=== PATIENT | male | born 1960 | race Caucasian/White ===

== ENCOUNTER 2020-07-23 13:26 | Inpatient (IN) | payer OTHER, SELFPAY ==
[2020-07-23] VITALS (42 sets, daily range): BP systolic 91–140; BP diastolic 64–108; PULSE 78–127; RESP 10–26; TEMP 36.4–36.6; O2SAT 94–100; BMI 35.4
--- NOTE | ~2020-07-23 | XR_ITS ---
EXAMINATION: XR chest 1V portable DATE: 07/25/2020 15:46 INDICATION: Pneumonia. TECHNIQUE: A single frontal view of the chest was obtained. COMPARISON: Chest single view 07/23/2020 FINDINGS: There are airspace opacities in right lower lung zone and all left lung zones with a periph eral predominance. A calcified right lung nodule and calcified right hilar lymph nodes are consistent with old granulomatous disease. There is a small left pleural effusion. No pneumothorax. The heart s ize is normal. IMPRESSION: 1. Worsened airspace opacities in right lower lung zone and all left lung zones, consistent with pneu monia. 2. Small left pleural effusion. Reviewed, dictated and finalized at location B. METAL MIXER OPERATOR HELPER IMPRESSION: 1. Worsened airspace opacities in right lower lung zone and all left lung zones , consistent with pneumonia. 2. Small left pleural effusion.
--- NOTE | ~2020-07-23 | XR_ITS ---
EXAMINATION: XR chest 1V portable EXAM DATE: 07/23/2020 14:06 INDICATION: Cough, dizziness. TECHNIQUE: Portable AP frontal chest x-ray was obtained. There is no prior study for comparison. FINDINGS: Small amount of ill-defined bilateral lower lobe airspace disease, possible acute infectiou s process. No confluent consolidation, pneumothorax or pleural effusion suspected. The cardiomediasti nal silhouette is prominent but magnified on this AP technique. There are mild bony degenerative charles ges. IMPRESSION: Small amount of ill-defined bibasilar airspace disease, clinical correlation. Reviewed, dictated and finalized at location A. R AND CHASSIS INSPECTOR IMPRESSION: Small amount of ill-defined bibasilar airspace disease, clinical co rrelation.
--- NOTE | 2020-07-23 13:31 | ECG_ITS ---
Measurements Intervals [place] Rate: 100 P: AL: 0 QRS: 22 QRSD: 97 T: 6 QT: 354 QTc: 457 Interpretive Statements ATRIAL FIBRILLATION WITH RAPID VENTRICULAR RESPONSE ABNORMAL ECG Electronically Signed On 07-23-2020 14:57:05 THREADING MACHINE TENDER by Patrick Forde D.O.
--- NOTE | 2020-07-23 13:45 | PC.NURSE ---
resting on stretcher. here with suspected Covid. see triage notes. no distress. new onset Afib on monitor here and EKG done at bedside. assessments documented.
[2020-07-23 13:56] LABS: Basophils Percent Auto 0.4 % (0.2-1.2); Hemoglobin 17.6 g/dL (14.0-18.0); Immature Granulocyte Percent A 1.2 % (0-0.5); Lymphocytes Absolute Auto 1.39 K/mm3 (0.9-3.2); Lymphocytes Percent Auto 16.5 % (18.3-44.2); Mean Corpuscular HGB Conc 34.5 g/dl (32-36); Mean Corpuscular Hemoglobin 32.5 pg (26-34); Mean Corpuscular Volume 94.1 fl (80-100); Mean Platelet Volume 10.8 fl (7.4-10.4); Monocytes Absolute Auto 0.8 K/mm3 (0.1-0.6); Monocytes Percent Auto 9.7 % (2.6-8.5); Neutrophils Absolute Auto 6.1 K/mm3 (1.3-6.7); Neutrophils Percent Auto 72.2 % (45.5-73.1); Platelet Count Result 171 k/mm3 (150-375); Red Blood Count 5.42 M/mm3 (4.6-6.20); Red Cell Distribution Width 12.6 % (11.5-14.5); White Blood Count 8.4 K/mm3 (4.5-10.0)
[2020-07-23 14:06] LABS: INR 1.2; Partial Thromboplastin Time 25.5 SECONDS (22.3-36.8); Prothrombin Time 15.3 Seconds (11.1-14.7)
[2020-07-23 14:11] LABS: Atypical Lymphocytes Present; Lactic Acid Reflex 2.9 mmol/L (0.7-2.1); Platelet Estimate Adequate (Adequate)
[2020-07-23 14:13] LABS: Alanine Aminotransferase 52 U/L (4-50); Albumin Level 3.7 g/dL (3.5-5.1); Alkaline Phosphatase 72 U/L (38-126); Anion Gap 14 mmol/L (8-16); Aspartate Amino Transferase 45 U/L (17-59); Bilirubin,Total 1.1 mg/dL (0.2-1.3); Blood Urea Nitrogen 33 mg/dL (9-20); CRP 6.2 mg/dL (<1.0); Calcium 8.8 mg/dL (8.4-10.2); Carbon Dioxide 19 mmol/L (22-30); Chloride 101 mmol/L (98-107); Estimated CRCL calculation 57 ml/min; Estimated Glomerular Filt Rate 41; Glucose 206 mg/dL (75-110); Sodium 134 mmol/L (137-145)
--- NOTE | 2020-07-23 14:40 | PC.NURSE ---
provider in room now.
--- NOTE | 2020-07-23 15:05 | PC.NURSE ---
resting on stretcher. on outsole cementer. has call light in reach. denies needs. updated on current treatment plan and expected wait time.
[2020-07-23 15:36] LABS: Troponin I < 0.012 ng/mL (0.000-0.034)
[2020-07-23 16:54] LABS: Reflex Lactic Acid Yes or No Add Lactic
--- NOTE | 2020-07-23 16:55 | ED.GENADULT ---
HPI - General Adult General Chief complaint: Dizziness Stated complaint: dizzy,lightheaded Time Seen by Provider: 07/23/20 14:35 History of Present Illness HPI narrative: Patient is a 60-year-old gentleman who presents emergency room with chief complaint of generalized weakness. Patient reports that he was exposed to COVID-19 on election night and has had generalized body aches and has not felt well since then. Patient states that he has felt lightheaded and felt as though he was going to pass out today he got up and was trying to ambulate but had to lay down on the ground because he had no energy. The patient denies chest pain reports that the last time he was seen by a physician was in 2005 Related Data Home Medications Medication Instructions Recorded Confirmed No Home Medications 07/23/20 07/23/20 Allergies Allergy/AdvReac Type Severity Reaction Status Date / Time alprazolam Allergy Unknown PSYCHOTIC Verified 07/14/10 13:07 RXN,AMNESIC 2-3DAYS, Review of Systems Review of Systems: Narrative: CONSTITUTIONAL: Denies fever, chills, or sweats. EYES: Denies visual changes, redness, or discharge. ENT: Denies rhinorrhea, congestion, sore throat, or otalgia. CARDIOVASCULAR: Denies chest pain, palpitations, or edema. RESPIRATORY: Denies cough or dyspnea. GASTROINTESTINAL: Denies abdominal pain, nausea, vomiting, or diarrhea. GENITOURINARY: Denies dysuria or hematuria. SKIN: Denies rash or itching. MUSCULOSKELETAL: Denies back pain, joint pain, or myalgia. NEUROLOGIC: Denies headache, numbness, or weakness. PSYCHIATRIC: Denies anxiety or depression. All systems reviewed & are unremarkable except as noted in HPI and below PMFSH Comments Prior history of head injury with long-term rehab gallop Denies smoking Exam Narrative: Exam Narrative: GENERAL: Well-appearing, well-nourished, and in no acute distress. HEAD: Normocephalic, atraumatic. EYES: PERRLA and EOMI. ENT: Nares clear, no rhinorrhea or epistaxis. Mucous membranes moist. NECK: Supple. CHEST: Clear to auscultation. No respiratory distress. HEART: Regular rate and rhythm. No murmur heard. Normal peripheral pulses. ABDOMEN: Soft, nontender, nondistended, normal active bowel sounds. EXTREMITIES: Normal range of motion. No edema. SKIN: Warm, dry, no rash. NEURO: No focal deficits. Alert and oriented x3. PSYCH: Normal mood and affect. Course Course Emergency Course: Patient's EKG shows a rate controlled atrial fibrillation. The patient has no prior history of atrial fibrillation. Patient's labs are consistent with potential COVID-19 chest x-ray shows no evidence of large infiltrate but does show evidence of possible bibasilar infiltrates. Given the onset of atrial fibrillation and also being patient CRP and also mild elevated creatinine showing acute kidney injury the case was discussed with the hospitalist and the patient will be admitted to the hospitalist service Vital Signs Vital signs: Vital Signs Pulse Rate 109 H 07/23/20 13:29 Respiratory Rate 18 07/23/20 13:29 Pulse Oximetry 99 07/23/20 13:29 Temperature 36.4 C L 07/23/20 13:40 Pulse Rate 83 07/23/20 18:45 Respiratory Rate 16 07/23/20 18:45 Blood Pressure 140/101 H 07/23/20 17:30 Pulse Oximetry 99 07/23/20 16:30 Medical Decision Making Vital Signs Vital Signs: Vital Signs Pulse Rate 109 H 07/23/20 13:29 Respiratory Rate 18 07/23/20 13:29 Pulse Oximetry 99 07/23/20 13:29 Temperature 36.4 C L 07/23/20 13:40 Pulse Rate 83 07/23/20 18:45 Respiratory Rate 16 07/23/20 18:45 Blood Pressure 140/101 H 07/23/20 17:30 Pulse Oximetry 99 07/23/20 16:30 Lab Data Result diagrams: 07/23/20 13:48 07/23/20 13:48 Labs: Lab Results 07/23/20 07/23/20 07/23/20 Range/Units 13:46 13:48 13:48 WBC 8.4 (4.5-10.0) K/mm3 RBC 5.42 (4.6-6.20) M/mm3 Hgb 17.6 (14.0-18.0) g/dL Hct 51.0 (42.0-5
[2020-07-23 18:08] LABS: Lactic Acid 3.9 mmol/L (0.7-2.1)
--- NOTE | 2020-07-23 18:38 | PC.NURSE ---
patient given ice water. IVF done. resting in bed. waiting for bed upstairs. has call light in reach. denies needs.
--- NOTE | 2020-07-23 19:32 | PC.NURSE ---
report given to RN on 3rd floor. will transfer to 328 on tele and with i&c tech. patient updated. denies needs prior to transfer.
--- NOTE | 2020-07-23 19:43 | ADMGEN ---
This patient, Saeed Liu, was admitted to 3 [facility] Surg Room 328-01. Patient/family oriented to hospital policies and general routines including ID bracelet, bed and alarms, visiting hours, pain management, procedures, bathroom and other care routines, personal items, smoking policy, room service/diet, and visiting hours. Information on how to activate the Rapid Response Team has been discussed. Patient/Family are encouraged to report perceived risks to care and to ask questions if they do not understand what they are told or what they should do.
--- NOTE | 2020-07-23 19:54 | PM.IMHP ---
H&P: HPI History of Present Illness Date/Time: 07/23/20 19:54 Chief complaint: new onset afib, sofy, viral syndrome Narrative: This is a 60-year-old morbidly obese male who presented to the hospital [facility] with a complaint of increased generalized weakness, fatigue, diffuse aches and pains, and chills for the past week. The patient denies any overt fever and has checked his temperature and it was 98?. Today he felt like he was going to pass out while he was walking and decided to come to the hospital for evaluation. He denies any chest pain, palpitations, shortness of breath, nausea, vomiting, diarrhea, abdominal pain, dysuria, hematuria, black stools, or rectal bleeding. He also denies any leg swelling, or leg redness, or leg pain. The patient believes that he was exposed to genao virus on election night and he has been tested for Coronavirus this week although the result has not come back yet. The patient was evaluated emergency room this evening and found to be in atrial fibrillation with rapid ventricular response. His heart rate has auscultated from the 90s up to 120s on the secured entrance monitor. He denies any past medical history of heart arrhythmias. He also denies any past medical history of coronary artery disease. The patient himself does not take any medication daily and the last time he was seen by a physician was when he had an accident fell off of a ladder in 2005. Of note during that hospitalization the patient did develop right lower extremity DVTs and did have an IVC filter placed. Routine labs that were obtained in the emergency room this evening demonstrated elevated lactic acid of 3.9 and acute renal failure with a creatinine of 1.70. We been asked admit the patient to the hospital for his new onset atrial fibrillation. He has no other complaints on my encounter with him. The patient was swabbed for genao virus in the ER [facility]. Review of Systems Review of Systems: All systems reviewed & are unremarkable except as noted in HPI and below PMFSH Past Medical History Medical History (Updated 07/23/20 @ 20:07 by Alberto Smith MD) Presence of IVC filter Surgical History Surgical History (Updated 07/23/20 @ 19:59 by Alberto Smith MD) S/P IVC filter Family History Family History Mother Breast cancer Social History Social History (Updated 07/23/20 @ 20:00 by Alberto Smith MD) Smoking status: Never smoker Alcohol intake: never Drinks per week: 10 Substance use: never Spiritual care concerns: No Meds Home Medications and Allergies Home Medications Medication Instructions Recorded Confirmed Type No Home Medications 07/23/20 07/23/20 History Allergies Allergy/AdvReac Type Severity Reaction Status Date / Time alprazolam Allergy Unknown PSYCHOTIC Verified 07/23/20 19:55 RXN,AMNESIC 2-3DAYS, Vital Signs Vital Signs - 24 hr 07/23/20 13:29 07/23/20 13:30 07/23/20 13:34 Temperature Pulse Rate 109 H 111 H Respiratory Rate 18 15 Blood Pressure 132/93 H Pulse Oximetry 99 98 98 07/23/20 13:40 07/23/20 13:45 07/23/20 13:46 Temperature 36.4 C L Pulse Rate 100 105 H 114 H Respiratory Rate 18 15 16 Blood Pressure 91/64 L Pulse Oximetry 97 97 97 07/23/20 13:47 07/23/20 14:00 07/23/20 14:15 Temperature Pulse Rate 104 H 102 H 97 Respiratory Rate 17 26 H 19 Blood Pressure Pulse Oximetry 95 07/23/20 14:16 07/23/20 14:30 07/23/20 14:31 Temperature Pulse Rate 97 104 H 90 Respiratory Rate 21 H 17 17 Blood Pressure 119/84 125/96 H Pulse Oximetry 97 96 96 07/23/20 14:32 07/23/20 14:45 07/23/20 14:46 Temperature Pulse Rate 90 106 H 85 Respiratory Rate 16 10 L 20 Blood Pressure 117/92 H Pulse Oximetry 97 97 97 07/23/20 15:00 07/23/20 15:01 07/23/20 15:15 Temperature Pulse Rate 86 101 H 88 Respiratory Rate 14 13 13 Blood Pressure 124/95 H
[2020-07-23 20:53] LABS: Magnesium 2.6 mg/dL (1.6-2.3)
[2020-07-23 20:58] LABS: Hemoglobin A1C 5.5 % (<5.7)
[2020-07-23 21:05] LABS: Troponin I < 0.012 ng/mL (0.000-0.034)
--- NOTE | 2020-07-23 21:30 | PC.NURSE ---
Telephone report given to Josie IMU LAUREN.
--- NOTE | 2020-07-23 22:05 | PC.NURSE ---
Transfer to room 211 per hospital bed.
[2020-07-23] MEDS: SODIUM CHLORIDE 0.9% IV 500 ML 999 ML IV CONT (22:53)
[2020-07-23] MEDS: ENOXAPARIN 30 MG/0.3 ML SYRINGE SUB-Q (22:55)
[2020-07-23] MEDS: ENOXAPARIN 100 MG/ML SYRINGE 95 MG SUB-Q (22:55)
[2020-07-24] VITALS (17 sets, daily range): BP systolic 108–156; BP diastolic 65–88; PULSE 71–98; RESP 14–22; TEMP 36.5–36.7; O2SAT 95–99; BMI 35.4
[2020-07-24] MEDS: SODIUM CHLORIDE 0.9% IV 1,000 ML 100 ML IV CONT ×3 (00:17→23:20)
[2020-07-24 03:05] LABS: Basophils Percent Auto 0.4 % (0.2-1.2); Eosinophils Percent Auto 0.1 % (0-4.4); Hematocrit 47.1 % (42.0-52.0); Hemoglobin 16.7 g/dL (14.0-18.0); Immature Granulocyte Percent A 1.1 % (0-0.5); Lymphocytes Absolute Auto 1.79 K/mm3 (0.9-3.2); Lymphocytes Percent Auto 19.9 % (18.3-44.2); Mean Corpuscular HGB Conc 35.5 g/dl (32-36); Mean Corpuscular Hemoglobin 33.4 pg (26-34); Mean Corpuscular Volume 94.2 fl (80-100); Mean Platelet Volume 10.5 fl (7.4-10.4); Monocytes Absolute Auto 0.8 K/mm3 (0.1-0.6); Monocytes Percent Auto 8.8 % (2.6-8.5); Neutrophils Absolute Auto 6.3 K/mm3 (1.3-6.7); Neutrophils Percent Auto 69.7 % (45.5-73.1); Platelet Count Result 143 k/mm3 (150-375); Red Cell Distribution Width 12.6 % (11.5-14.5)
[2020-07-24 03:22] LABS: Anion Gap 9 mmol/L (8-16); Blood Urea Nitrogen 35 mg/dL (9-20); Calcium 8.7 mg/dL (8.4-10.2); Carbon Dioxide 20 mmol/L (22-30); Chloride 105 mmol/L (98-107); Estimated CRCL calculation 65 ml/min; Estimated Glomerular Filt Rate 47; Glucose 117 mg/dL (75-110); Potassium 4.2 mmol/L (3.4-5.0); Sodium 134 mmol/L (137-145)
[2020-07-24 03:32] LABS: Troponin I < 0.012 ng/mL (0.000-0.034)
[2020-07-24 05:21] LABS: Platelet Estimate Adequate (Adequate)
[2020-07-24 05:22] LABS: Atypical Lymphocytes Present
[2020-07-24] MEDS: ENOXAPARIN 30 MG/0.3 ML SYRINGE SUB-Q ×2 (10:33→20:45)
[2020-07-24] MEDS: ENOXAPARIN 100 MG/ML SYRINGE 95 MG SUB-Q ×2 (10:33→20:45)
[2020-07-24 10:57] LABS: Lactic Acid Reflex 1.6 mmol/L (0.7-2.1)
--- NOTE | 2020-07-24 11:58 | PM.CNCAR ---
Assessment and Plan Assessment and plan (1) Atrial fibrillation with rapid ventricular response: Code(s): I48.91 - Unspecified atrial fibrillation Status: Acute Assessment and Plan: Heart rate reasonably controlled. Begin oral metoprolol 25 mg b.i.d., stop Diltiazem. CHADS2 Vasc score 1 (probable HTN, possibly 2 glucose >200 at presentation), COVID pending. Started on systemic A/C. Mild thrombocytopenia. Check Hgb A1c. Apnea Link overnight if remains hospitalized 2D Echo (2) Suspected 2019 novel coronavirus infection: Code(s): Z20.828 - Contact with and (suspected) exposure to other viral communicable diseases Status: Acute Assessment and Plan: COVID-19 status pending. Remains on isolation. High clinical suspicion given presenting viral syndrome, new atrial fibrillation, faint bilateral opacities on CXR. CRP elevated, check D-Dimer. Further management per Primary Service. (3) Acute kidney injury: Code(s): N17.9 - Acute kidney failure, unspecified Status: Acute Assessment and Plan: Suspect acute on chronic, creatinine slightly improved 1.7, now 1.5. Continue to monitor. Hydration. History of Present Illness History of Present Illness Consult date/time: Date of service: 07/24/20 11:58 Cardiology consultation at the request of Dr. Elizabeth of the [facility] for our opinion regarding atrial fibrillation with rapid ventricular response. Requesting physician: Alberto Elizabeth MD Consult reason: atrial fibrillation Reason For Visit: new onset afib, sofy, viral syndrome Narrative: Patient is a 60-year-old male with a history of RLE DVT status post IVC filter thought secondary to traumatic fall of a ladder 2005, obesity who presents with complaints of generalized weakness, fatigue, body aches and pains, chills for the preceding week. Denied fever initially and has been afebrile since admission. He reports feeling lightheaded like he was going to pass out and prompting him to present for evaluation. Denies chest pain, shortness of breath or palpitations. No bright red blood per rectum or melena. No nausea vomiting noted. There is notation that he believes he was exposed to Coronavirus on July 16 which has been tested already but resolved his yet to return. He was once again swabbed emergency department which is pending. In the ER evaluation revealed atrial fibrillation with intermittent rapid ventricular response with heart rates ranging from 80s to 120s. He has no prior history of atrial fibrillation, CAD, myocardial infarction, CHF. He denies obstructive sleep apnea but admits that he snores. He has not followed with a physician in many years. He denies lower extremity edema orthopnea or PND. He was started on diltiazem after admission which was not continued overnight but rate remains reasonably controlled in atrial fibrillation. Serial troponins negative x2, TSH 1.6, creatinine 1.7 initially. Platelet count this morning 143. Review of Systems Review of Systems: All systems reviewed & are unremarkable except as noted in HPI and below Constitutional: Constitutional: Reports as per HPI, Reports no additional constitutional complaints, Reports body ache(s), Reports chills, Reports fatigue, Denies night sweats and Reports weakness Eyes: Eyes: Reports as per HPI and Reports no additional eye complaints ENT: Reports system reviewed and no additional complaints, except as documented and Reports as per HPI Cardiovascular: Cardiovascular: Reports as per HPI, Reports no additional cardiovascular complaints, Denies chest pain, Reports diaphoresis, Denies leg edema, Reports lightheadedness and Denies palpitations Respiratory: Respiratory: Reports as per HPI, Reports no additional respiratory complaints, Reports cough, Denies dyspnea and Denies dyspnea on exertion Gastrointestinal: Gastrointestinal: Reports as per HPI, Reports no additional gastrointestinal complaints
[2020-07-24 14:13] LABS: SARS-CoV-2 RNA PCR Negative
[2020-07-24 15:34] LABS: D Dimer 17.91 ug/mL (<0.48)
[2020-07-24 16:45] LABS: Hemoglobin A1C 5.5 % (<5.7)
--- NOTE | 2020-07-24 17:47 | PM.IMPN ---
Progress Note: A&P Assessment and Plan (1) Atrial fibrillation with rapid ventricular response: Code(s): I48.91 - Unspecified atrial fibrillation Status: Acute Assessment and Plan: May be secondary to acute viral syndrome. Admit to IMU, CHADSVASc score 2 - telemetry, Diltiazem IV for rate control overnight for a goal resting HR of 60-80 bpm, Anticoagulation w/ therapeutic SC Lovenox, Check TSH w/ reflex T4, Echocardiogram. Cardiology consultation in am. 07/24/20 17:47 patient is 60-year-old male with a history of DVT status post fall and injury to lower extremity he has IVC filter, he has no history of coronary artery disease hypertension or CHF, presented emergency department with a complaint of fatigue and weakness he was found to any onset atrial fibrillation with rate 130 initially he was started on diltiazem drip it is rates trended down seen by cardiology and switch him over to metoprolol 25 mg b.i.d. patient's rate remained stable, patient CHADS2 Vasc score 1 patient is seen by imaging system administrator, the patient does not need to be systematically anticoagulated restarted the patient on full-dose aspirin 325mg daily, patient is being tested for COVID-19 in the event it is positive patient will require systematically anticoagulated, however patient COVID is negative, patient is clinically stable, patient is moderately obese most likely patient has sleep apnea he does snore daytime tired of being fatigued patient will need sleep study will order a apnea link for the patient. (2) Elevated lactic acid level: Code(s): R79.89 - Other specified abnormal findings of blood chemistry Status: Acute Assessment and Plan: Likely secondary to dehydration. The patient has not yet received any IV fluids in the ER. We will administer NS IV bolus. Monitor lactic acid. (3) Acute kidney injury: Code(s): N17.9 - Acute kidney failure, unspecified Status: Acute Assessment and Plan: May be secondary to hypoperfusion from dehydration. Continue IV fluid challenge. Check Urinalysis /w microscopy, renally dose medications. Monitor urine output and renal function. (4) Suspected 2019 novel coronavirus infection: Code(s): Z20.828 - Contact with and (suspected) exposure to other viral communicable diseases Status: Acute Assessment and Plan: Droplet isolation, Continue supportive care. PRN bronchodilators. COVID-19 results pending. (5) Abnormal glucose: Code(s): R73.09 - Other abnormal glucose Status: Acute Assessment and Plan: r/o undiagnosed diabetes. Check HgbA1c. (6) Morbid obesity: Code(s): E66.01 - Morbid (severe) obesity due to excess calories Status: Chronic Assessment and Plan: Healthy lifestyle choices were encouraged. Additional Plan The patient will likely need at least 2 nights of inpatient medical therapy for his acute new onset atrial fibrillation w/ RVR and comorbid conditions listed above. Date of servce was 07/23/2020 at 7 pm. Subjective Date/time seen: 07/24/20 17:47 patient is 60-year-old male with a history of DVT status post fall and injury to lower extremity he has IVC filter, he has no history of coronary artery disease hypertension or CHF, presented emergency department with a complaint of fatigue and weakness he was found to any onset atrial fibrillation with rate 130 initially he was started on diltiazem drip it is rates trended down seen by cardiology and switch him over to metoprolol 25 mg b.i.d. patient's rate remained stable, patient CHADS2 Vasc score 1 patient is seen by imaging system administrator, the patient does not need to be systematically anticoagulated restarted the patient on full-dose aspirin 325mg daily, patient is being tested for COVID-19 in the event it is positive patient will require systematically anticoagulated, however patient COVID is negative, patient is clinically stable, patient is moderately obese most likely patient has s
[2020-07-24] MEDS: METOPROLOL TARTRATE 25 MG TABLET PO (20:44)
[2020-07-24] MEDS: ACETAMINOPHEN 325 MG TABLET 650 MG PO (20:53)
[2020-07-25] VITALS (15 sets, daily range): BP systolic 115–130; BP diastolic 56–88; PULSE 62–108; RESP 14–20; TEMP 36.1–36.8; O2SAT 95–98
--- NOTE | 2020-07-25 | ECHO_ITS ---
Patient Info Name: Saeed Liu Age: 60 years : 1960 Gender: Male Ht: 74 in Wt: 275 lbs BSA: 2.59 m2 HR: 85 bpm BP: 130 / 88 mmHg Heart Rhythm: Atrial Fibrillation Technical Quality: Good Exam Date: 07/25/2020 9:27 AM Exam Location: [facility] Pulmonary Patient Status: Inpatient Admit Date: 07/23/2020 Staff Ordering Physician: Bennie Graf MD Asphalt Roller Operator: Pako Tejeda, JINA, RT Attending Provider: Surjit Denney MD Referring Physician: Homar ALEXANDER; Exam Type: CA echo doppler color flow Study Info Indications I48.1 - Persistent atrial fibrillation Complete two-dimensional, color flow and Doppler transthoracic echocardiogram is performed. Summary 1. Left ventricular systolic function is normal, estimated at 60-65%. 2. There is moderately increased left ventricular wall thickness. 3. Left atrial chamber dimension is mildly enlarged. 4. Right atrial chamber dimension is moderately enlarged. 5. No pulmonary hypertension, estimated pulmonary arterial systolic pressure is 25 mmHg. 6. There is small pericardial effusion. Left Ventricle Left ventricular chamber dimension is normal. Left ventricular systolic function is normal, estimated at 60-65%. There is moderately increased left ventricular wall thickness. The left ventricular diastolic function is indeterminate. Right Ventricle Right ventricular chamber dimension is normal. Right ventricular systolic function is normal. Prominent moderator band within RV. Left Atria Left atrial chamber dimension is mildly enlarged. Right Atria Right atrial chamber dimension is moderately enlarged. Aortic Valve The aortic valve is trileaflet. There is no aortic valve stenosis. There is trace aortic valve regurgitation. Pulmonic Valve The pulmonic valve is not well visualized. There is trace pulmonic regurgitation. Mitral Valve The mitral valve has normal leaflets. There is trace mitral valve regurgitation. Tricuspid Valve The tricuspid valve leaflets are normal. There is trace tricuspid valve regurgitation. No pulmonary hypertension, estimated pulmonary arterial systolic pressure is 25 mmHg. Pericardium/Pleural The pericardium appears normal. There is small pericardial effusion. Inferior Vena Cava Normal inferior vena cava with >50% collapse upon inspiration consistent with normal right atrial pressure, 5 mmHg. Aorta The aortic root size at the sinus of Valsalva is normal. There is mild aortic atherosclerosis. Tricuspid Valve Name Value Normal Estimated PAP/RSVP RA Pressure 5 mmHg <=5 PA Systolic Pressure 25 mmHg <36 Report Signatures
[2020-07-25 05:49] LABS: Hemoglobin 14.7 g/dL (14.0-18.0); Mean Corpuscular Hemoglobin 33.6 pg (26-34); Mean Corpuscular Volume 95.9 fl (80-100); Mean Platelet Volume 10.6 fl (7.4-10.4); Platelet Count Result 183 k/mm3 (150-375); Red Blood Count 4.38 M/mm3 (4.6-6.20); Red Cell Distribution Width 12.5 % (11.5-14.5); White Blood Count 7.3 K/mm3 (4.5-10.0)
[2020-07-25 05:52] LABS: Anion Gap 6 mmol/L (8-16); Blood Urea Nitrogen 26 mg/dL (9-20); Calcium 8.2 mg/dL (8.4-10.2); Carbon Dioxide 23 mmol/L (22-30); Chloride 109 mmol/L (98-107); Estimated CRCL calculation 74 ml/min; Estimated Glomerular Filt Rate 56; Glucose 93 mg/dL (75-110); Potassium 4.2 mmol/L (3.4-5.0); Sodium 138 mmol/L (137-145)
[2020-07-25] MEDS: METOPROLOL TARTRATE 25 MG TABLET PO ×2 (09:01→20:04)
[2020-07-25] MEDS: ENOXAPARIN 30 MG/0.3 ML SYRINGE SUB-Q ×2 (09:01→20:04)
[2020-07-25] MEDS: ENOXAPARIN 100 MG/ML SYRINGE 95 MG SUB-Q ×2 (09:01→20:04)
--- NOTE | 2020-07-25 11:35 | PM.PNCARD ---
Progress Note: A&P Assessment and Plan (1) Atrial fibrillation with rapid ventricular response: Code(s): I48.91 - Unspecified atrial fibrillation Status: Acute Assessment and Plan: Heart rate controlled on Metoprolol 25 mg b.i.d. CHADS2 Vasc score 1 (probable HTN), COVID negative. Stop A/C. ASA 325mg daily acceptable. Check Hgb A1c. Apnea Link AHI 23 clinical suspicion for MARIAM. Outpatient sleep study advised. 2D Echo pending. Will review when available with recommendations to follow.. (2) Suspected 2019 novel coronavirus infection: Code(s): Z20.828 - Contact with and (suspected) exposure to other viral communicable diseases Status: Acute Assessment and Plan: COVID-19 Negative, however, patient symptom complex highly suggestive of viral etiology diffuse body/muscle aches, weakness, lack of energy and new A.Fib who reports close proximity to multiple individuals who have tested positive for COVID-19. In my opinion, clinical suspicion remains high for COVID despite negative swab. High clinical suspicion given presenting viral syndrome, new atrial fibrillation, faint bilateral opacities on CXR. CRP elevated, check D-Dimer. Further management per Primary Service. Repeat COVID-19 if flu swab. Check flu swab. (3) Acute kidney injury: Code(s): N17.9 - Acute kidney failure, unspecified Status: Acute Assessment and Plan: Suspect acute on chronic, creatinine improving. Continue to monitor. Subjective Date/time seen: date of service: 07/25/20 11:35 Follow-up for new diagnosis atrial fibrillation overnight no new issues. Patient remains in AFib heart rate controlled. Denies chest pain but does admit to some exertional shortness of breath albeit mild. No palpitations. States he continues to feel very fatigued, no energy. He states 6 out of his a closely [place] is have tested positive for COVID although his COVID test was negative yesterday. He has another COVID swab from last Wednesday. Apnea link does not appear to have been performed per records although patient describes being monitored overnight. Review of Systems Review of Systems: All systems reviewed & are unremarkable except as noted in HPI and below Constitutional: Constitutional: Reports as per HPI, Reports no additional constitutional complaints, Reports body ache(s), Reports fatigue, Denies night sweats and Reports weakness Eyes: Eyes: Reports as per HPI and Reports no additional eye complaints ENT: Reports system reviewed and no additional complaints, except as documented and Reports as per HPI Cardiovascular: Cardiovascular: Reports as per HPI, Reports no additional cardiovascular complaints, Denies chest pain, Denies leg edema, Reports lightheadedness, Denies palpitations, Denies dyspnea and Denies dyspnea on exertion Respiratory: Respiratory: Reports as per HPI, Reports no additional respiratory complaints, Reports cough, Denies dyspnea and Denies dyspnea on exertion Gastrointestinal: Gastrointestinal: Reports as per HPI, Reports no additional gastrointestinal complaints, Denies abdominal pain, Denies melena, Denies bloating, Denies hematochezia, Denies nausea, Denies vomiting and Denies hematemesis Genitourinary: Genitourinary: Reports no additional male genitourinary complaints, Reports as per HPI, Denies hematuria and Denies dysuria Musculoskeletal: Musculoskeletal: Reports no additional musculoskeletal complaints, Reports as per HPI and Reports arthralgias Integumentary/Breasts: Skin/Breast: Reports system reviewed and no additional complaints, except as docu and Reports as per HPI Neurologic: Reports system reviewed and no additional complaints, except as documented, Reports as per HPI, Denies confusion and Reports weakness Psychiatric: Psychiatric: Reports no additional psychiatric complaints, Reports as per HPI and Denies confusion Endocrine: Endocrine: Reports no additional endocrine complaints, Reports as p
[2020-07-25 15:43] LABS: Hematocrit 43.5 % (42.0-52.0); Hemoglobin 15.1 g/dL (14.0-18.0); Mean Corpuscular HGB Conc 34.7 g/dl (32-36); Mean Corpuscular Hemoglobin 33.1 pg (26-34); Mean Corpuscular Volume 95.4 fl (80-100); Mean Platelet Volume 10.1 fl (7.4-10.4); Platelet Count Result 210 k/mm3 (150-375); Red Blood Count 4.56 M/mm3 (4.6-6.20); Red Cell Distribution Width 12.6 % (11.5-14.5)
[2020-07-25 16:01] LABS: Alanine Aminotransferase 37 U/L (4-50); Albumin Level 3.3 g/dL (3.5-5.1); Alkaline Phosphatase 64 U/L (38-126); Anion Gap 8 mmol/L (8-16); Aspartate Amino Transferase 34 U/L (17-59); Bilirubin,Total 0.9 mg/dL (0.2-1.3); Blood Urea Nitrogen 21 mg/dL (9-20); CRP 6.6 mg/dL (<1.0); Calcium 8.7 mg/dL (8.4-10.2); Carbon Dioxide 23 mmol/L (22-30); Chloride 107 mmol/L (98-107); Estimated CRCL calculation 80 ml/min; Estimated Glomerular Filt Rate > 60; Glucose 112 mg/dL (75-110); Potassium 4.1 mmol/L (3.4-5.0); Sodium 138 mmol/L (137-145)
[2020-07-25 16:07] LABS: Band Neutrophils Percent 2 % (0-6); Lymphocytes Absolute Manual 1.12 K/mm3 (1.1-4.5); Monocytes Absolute Manual 0.77 K/mm3 (0.1-0.90); Monocytes Percent Manual 11 % (3-9); Neutrophils Absolute Manual 5.11 K/mm3 (1.3-6.7); Neutrophils Percent Manual 71 % (46-73); Platelet Estimate Adequate (Adequate); Total Cells Counted 100
[2020-07-25 16:09] LABS: D Dimer 5.27 ug/mL (<0.48)
[2020-07-25 16:46] LABS: Influenza Control Positive
--- NOTE | 2020-07-25 17:43 | PM.IMPN ---
Progress Note: A&P Assessment and Plan (1) Atrial fibrillation with rapid ventricular response: Code(s): I48.91 - Unspecified atrial fibrillation Status: Acute Assessment and Plan: May be secondary to acute viral syndrome. Admit to IMU, CHADSVASc score 2 - telemetry, Diltiazem IV for rate control overnight for a goal resting HR of 60-80 bpm, Anticoagulation w/ therapeutic SC Lovenox, Check TSH w/ reflex T4, Echocardiogram. Cardiology consultation in am. 07/25/20 17:43 patient is 60-year-old male with a history of DVT status post fall and injury to lower extremity he has IVC filter, he has no history of coronary artery disease hypertension or CHF, presented emergency department with a complaint of fatigue and weakness he was found to any onset atrial fibrillation with rate 130 initially he was started on diltiazem drip it is rates trended down seen by cardiology and switch him over to metoprolol 25 mg b.i.d. patient's rate remained stable, patient CHADS2 Vasc score 1 patient is seen by supervisor electronic testing, the patient does not need to be systematically anticoagulated restarted the patient on full-dose aspirin 325mg daily, patient is being tested for COVID-19 in the event it is positive patient will require systematically anticoagulated, however patient COVID is negative, patient is clinically stable, patient is moderately obese most likely patient has sleep apnea he does snore daytime tired of being fatigued patient will need sleep study will order a apnea link for the patient. Today patient states is feeling tired and fatigue denies any chest pain or palpitation his COVID test is negative however his inflammatory markers are elevated and supervisor electronic testing suspect the patient most likely had a COVID-19, will repeat COVID test will continue to monitor patient and and monitor inflammatory marker, his rate is now controlled with metoprolol 25 mg b.i.d. he remains clinically stable, did have apnea link and shows the patient will benefit outpatient sleep study, will continue to monitor the patient and follow-up on repeat COVID test (2) Elevated lactic acid level: Code(s): R79.89 - Other specified abnormal findings of blood chemistry Status: Acute Assessment and Plan: Likely secondary to dehydration. The patient has not yet received any IV fluids in the ER. We will administer NS IV bolus. Monitor lactic acid. (3) Acute kidney injury: Code(s): N17.9 - Acute kidney failure, unspecified Status: Acute Assessment and Plan: May be secondary to hypoperfusion from dehydration. Continue IV fluid challenge. Check Urinalysis /w microscopy, renally dose medications. Monitor urine output and renal function. (4) Suspected 2019 novel coronavirus infection: Code(s): Z20.828 - Contact with and (suspected) exposure to other viral communicable diseases Status: Acute Assessment and Plan: Droplet isolation, Continue supportive care. PRN bronchodilators. COVID-19 results pending. (5) Abnormal glucose: Code(s): R73.09 - Other abnormal glucose Status: Acute Assessment and Plan: r/o undiagnosed diabetes. Check HgbA1c. (6) Morbid obesity: Code(s): E66.01 - Morbid (severe) obesity due to excess calories Status: Chronic Assessment and Plan: Healthy lifestyle choices were encouraged. Subjective Date/time seen: 07/25/20 17:43 patient is 60-year-old male with a history of DVT status post fall and injury to lower extremity he has IVC filter, he has no history of coronary artery disease hypertension or CHF, presented emergency department with a complaint of fatigue and weakness he was found to any onset atrial fibrillation with rate 130 initially he was started on diltiazem drip it is rates trended down seen by cardiology and switch him over to metoprolol 25 mg b.i.d. patient's rate remained stable, patient CHADS2 Vasc score 1 patient is seen by supervisor electronic testing, the patient does not
[2020-07-25] MEDS: ACETAMINOPHEN 325 MG TABLET 650 MG PO (20:06)
--- NOTE | 2020-07-25 20:15 | PC.NURSE ---
PATIENT WAS MOVED OUT OF IMU AT 2014 TO ROOM 327 WITH TELEMETRY. VITALS WERE STABLE AT TIME OF TRANSFER. PATIENT WAS SENT WITH ALL BELONGINGS.
--- NOTE | 2020-07-25 20:20 | PC.NURSE ---
This patient, Saeed Liu, was received from IMU on 07/25/20 at 2020. Patient/family oriented to unit policies and routines
[2020-07-26] VITALS: BP 119/88; PULSE 61; PULSE 64; RESP 20; TEMP 36.6; O2SAT 97
[2020-07-26 04:00] VITALS: BP 119/78; PULSE 52; PULSE 86; RESP 20; TEMP 37.3; O2SAT 92
[2020-07-26 06:37] LABS: Hematocrit 41.6 % (42.0-52.0); Hemoglobin 14.2 g/dL (14.0-18.0); Mean Corpuscular HGB Conc 34.1 g/dl (32-36); Mean Corpuscular Hemoglobin 32.1 pg (26-34); Mean Corpuscular Volume 94.1 fl (80-100); Mean Platelet Volume 9.9 fl (7.4-10.4); Platelet Count Result 219 k/mm3 (150-375); Red Blood Count 4.42 M/mm3 (4.6-6.20); Red Cell Distribution Width 12.3 % (11.5-14.5); White Blood Count 7.9 K/mm3 (4.5-10.0)
[2020-07-26 06:54] LABS: Anion Gap 6 mmol/L (8-16); Blood Urea Nitrogen 18 mg/dL (9-20); Calcium 8.5 mg/dL (8.4-10.2); Carbon Dioxide 24 mmol/L (22-30); Chloride 108 mmol/L (98-107); Estimated CRCL calculation 80 ml/min; Estimated Glomerular Filt Rate > 60; Glucose 103 mg/dL (75-110); Potassium 4.3 mmol/L (3.4-5.0); Sodium 138 mmol/L (137-145)
[2020-07-26 08:00] VITALS: BP 134/82; PULSE 55; PULSE 70; RESP 20; TEMP 36.2; O2SAT 99
[2020-07-26] MEDS: ENOXAPARIN 30 MG/0.3 ML SYRINGE SUB-Q (08:20)
[2020-07-26 08:21] VITALS: PULSE 76
[2020-07-26] MEDS: ENOXAPARIN 100 MG/ML SYRINGE 95 MG SUB-Q (08:21)
[2020-07-26] MEDS: METOPROLOL TARTRATE 25 MG TABLET PO (08:21)
[2020-07-26 12:00] VITALS: BP 129/73; PULSE 55; RESP 20; TEMP 36.1; O2SAT 98
--- NOTE | 2020-07-26 14:43 | PM.PNCARD ---
Progress Note: A&P Additional Plan 60-year-old patient with generalized weakness we are seeing him because of atrial fibrillation of unknown chronicity rate control with metoprolol looks quite good. As per Dr. Graf note he does not need to be systemically anticoagulated because of low Sami score. No further cardiac reason for ongoing hospitalization. Dr. Graf will follow this gentleman in the office and determine if an attempted cardioversion is to be considered verses accepting chronic atrial fibrillation Josef Hutchison MD [facility] Subjective Date/time seen: 07/26/20 14:43 Interval history: Follow-up visit in this 60-year-old gentleman with atrial fibrillation of uncertain chronicity Receiving metoprolol with good rate control Admitted with nonspecific symptoms of generalized weakness Initial genao virus test was negative repeat swab is pending Exam Const: General: comfortable and no acute distress HENMT: Mouth: Yes moist mucous membranes Eyes: Sclera: sclerae normal Pupils: Equal, round and reactive pupils present Neck: Neck: supple and no JVD Thyroid: thyroid normal Resp: Effort & Inspection: normal respiratory effort Auscultation: clear to auscultation bilaterally Cardio: Rate: regular rate Rhythm: abnormal rhythm irregularly irregular GI: GI Palp: Yes Soft to palpation Auscultation: normal bowel sounds Neuro: Cognition (Neuro): normal cognition Extrem: Other: Good distal perfusion Objective Data Vital Signs Vital Signs: Vital Signs - 24 hr 07/25/20 15:57 07/25/20 16:00 07/25/20 20:00 Temperature 36.5 C 36.8 C Pulse Rate 84 84 108 H Respiratory Rate 18 18 16 Blood Pressure 125/84 124/79 Pulse Oximetry 98 98 97 07/25/20 20:04 07/25/20 20:35 07/26/20 00:00 Temperature 36.6 C Pulse Rate 88 101 H 61 Respiratory Rate 20 Blood Pressure 119/88 Pulse Oximetry 97 07/26/20 04:00 07/26/20 08:00 07/26/20 08:21 Temperature 37.3 C 36.2 C L Pulse Rate 52 L 70 76 Respiratory Rate 20 20 Blood Pressure 119/78 134/82 Pulse Oximetry 92 99 07/26/20 12:00 Temperature 36.1 C L Pulse Rate 55 L Respiratory Rate 20 Blood Pressure 129/73 Pulse Oximetry 98 Intake/Output Intake/Output: Intake & Output 07/23/20 07/24/20 07/25/20 07/26/20 23:59 23:59 23:59 23:59 Intake Total 3680 700 390 Output Total 400 650 200 Balance 3280 50 190 Meds/Results Medications: Active Medications Generic Name Dose Route Start Last Admin Trade Name Freq PRN Reason Stop Dose Admin Acetaminophen 650 mg 07/23/20 19:53 07/25/20 20:06 Acetaminophen 325 Mg Tablet PO 650 mg Q4H PRN Administration Mild Pain (1-3) or Fever Enoxaparin Sodium 30 mg 07/23/20 21:00 07/26/20 08:20 Enoxaparin 30 Mg/0.3 Ml Syringe SUB-Q 30 mg Q12HR CORRY Administration Enoxaparin Sodium 95 mg 07/23/20 21:00 07/26/20 08:21 Enoxaparin 100 Mg/Ml Syringe SUB-Q 95 mg Q12HR CORRY Administration Metoprolol Tartrate 25 mg 07/24/20 21:00 07/26/20 08:21 Metoprolol Tartrate 25 Mg Tablet PO 25 mg Q12HR CORRY Administration Radiology Results: ITS Impressions Chest X-Ray 07/25/20 15:53 IMPRESSION: 1. Worsened airspace opacities in right lower lung zone and all left lung zones, consistent with pneumonia. 2. Small left pleural effusion. Labs Labs: Laboratory Results - last 24 hr 07/25/20 07/25/20 07/25/20 15:38 15:38 15:38 WBC 7.0 RBC 4.56 L Hgb 15.1 Hct 43.5 MCV 95.4 MCH 33.1 MCHC 34.7 RDW 12.6 Plt Count 210 MPV 10.1 Immature Gran % (Auto) Not Reportable Neut % (Auto) Not Reportable Lymph % (Auto) Not Reportable [place] % (Auto) Not Reportable Eos % (Auto) Not Reportable Baso % (Auto) Not Reportable Lymph # (Auto) Not Reportable [place] # (Auto) Not Reportable Eos # (Auto) Not Reportable Baso # (Auto) Not Reportable Abs Immat Gran (auto) Not Reportable Absolute Neuts (auto) Not Reportable
[2020-07-26 14:52] LABS: SARS-CoV-2 RNA PCR Negative
--- NOTE | 2020-07-26 16:25 | PM.DS ---
DS: Admitting Diagnosis Admitting Diagnosis Admitting Diagnosis: new onset afib, sofy, viral syndrome DS: Discharge Diagnosis Discharge Diagnosis (1) Atrial fibrillation with rapid ventricular response: Code(s): I48.91 - Unspecified atrial fibrillation Status: Acute Assessment and Plan: May be secondary to acute viral syndrome. Admit to IMU, CHADSVASc score 2 - telemetry, Diltiazem IV for rate control overnight for a goal resting HR of 60-80 bpm, Anticoagulation w/ therapeutic SC Lovenox, Check TSH w/ reflex T4, Echocardiogram. Cardiology consultation in am. 07/25/20 17:43 patient is 60-year-old male with a history of DVT status post fall and injury to lower extremity he has IVC filter, he has no history of coronary artery disease hypertension or CHF, presented emergency department with a complaint of fatigue and weakness he was found to any onset atrial fibrillation with rate 130 initially he was started on diltiazem drip it is rates trended down seen by cardiology and switch him over to metoprolol 25 mg b.i.d. patient's rate remained stable, patient CHADS2 Vasc score 1 patient is seen by clinical documentation consultant, the patient does not need to be systematically anticoagulated restarted the patient on full-dose aspirin 325mg daily, patient is being tested for COVID-19 in the event it is positive patient will require systematically anticoagulated, however patient COVID is negative, patient is clinically stable, patient is moderately obese most likely patient has sleep apnea he does snore daytime tired of being fatigued patient will need sleep study will order a apnea link for the patient. Today patient states is feeling tired and fatigue denies any chest pain or palpitation his COVID test is negative however his inflammatory markers are elevated and clinical documentation consultant suspect the patient most likely had a COVID-19, will repeat COVID test will continue to monitor patient and and monitor inflammatory marker, his rate is now controlled with metoprolol 25 mg b.i.d. he remains clinically stable, did have apnea link and shows the patient will benefit outpatient sleep study, will continue to monitor the patient and follow-up on repeat COVID test (2) Elevated lactic acid level: Code(s): R79.89 - Other specified abnormal findings of blood chemistry Status: Acute Assessment and Plan: Likely secondary to dehydration. The patient has not yet received any IV fluids in the ER. We will administer NS IV bolus. Monitor lactic acid. (3) Acute kidney injury: Code(s): N17.9 - Acute kidney failure, unspecified Status: Acute Assessment and Plan: May be secondary to hypoperfusion from dehydration. Continue IV fluid challenge. Check Urinalysis /w microscopy, renally dose medications. Monitor urine output and renal function. (4) Suspected 2019 novel coronavirus infection: Code(s): Z20.828 - Contact with and (suspected) exposure to other viral communicable diseases Status: Acute Assessment and Plan: Droplet isolation, Continue supportive care. PRN bronchodilators. COVID-19 results pending. (5) Abnormal glucose: Code(s): R73.09 - Other abnormal glucose Status: Acute Assessment and Plan: r/o undiagnosed diabetes. Check HgbA1c. (6) Morbid obesity: Code(s): E66.01 - Morbid (severe) obesity due to excess calories Status: Chronic Assessment and Plan: Healthy lifestyle choices were encouraged. DS: Summary Hospital Course Reason for hospitalization: Chief complaint: new onset afib, sofy, viral syndrome Narrative: This is a 60-year-old morbidly obese male who presented to the hospital [facility] with a complaint of increased generalized weakness, fatigue, diffuse aches and pains, and chills for the past week. The patient denies any overt fever and has checked his temperature and it was 98?. Today he felt like he was going to pass out while he was walking and decided to c
== END 2020-07-26 18:27 | disposition home or self-care (01) | DRG 309 ==
LOC: ANHED 16:59 → ANH3MEDSUR 07-26 01:58 → ANHIMU 07-29 15:51
PROVIDERS: Family Medicine; Internal Medicine Cardiovascular Disease; Admitting Provider Internal Medicine; Emergency Provider Emergency Medicine; Visit Provider Family Medicine
DX: I48.91 Unspecified atrial fibrillation (principal); N17.9 Acute kidney failure, unspecified; B34.9 Viral infection, unspecified; Z20.828 Contact with and (suspected) exposure to other viral communicable diseases; E86.0 Dehydration; R73.09 Other abnormal glucose; G47.33 Obstructive sleep apnea (adult) (pediatric); E66.01 Morbid (severe) obesity due to excess calories; Z68.35 Body mass index [BMI] 35.0-35.9, adult; Z86.718 Personal history of other venous thrombosis and embolism
CPT/HCPCS: 36415; 71045; 80048; 80053; 82728; 83036; 83605; 83735; 84443; 84484; 85025; 85027; 85380; 85610; 85730; 86140; 87040; 87635; 87804; 93005; 93306; 94762; 99285; A9270; C9803; J1650; J7030; J7040; U0003

== ENCOUNTER 2020-10-12 00:36 | Outpatient (CLI) | payer OTHER, SELFPAY ==
[2020-10-14 17:34] LABS: SARS-CoV-2 RNA PCR Negative
== END 2020-10-12 00:37 | disposition home or self-care (01) ==
LOC: ANHCOVIDDT 00:36
PROVIDERS: Visit Provider Internal Medicine Cardiovascular Disease
DX: Z01.812 Encounter for preprocedural laboratory examination (principal); Z20.822 Contact with and (suspected) exposure to COVID-19
CPT/HCPCS: C9803; U0003; U0005

== ENCOUNTER 2020-10-15 01:30 | Day surgery (SDC) | payer OTHER, SELFPAY ==
[2020-10-14 14:32] VITALS: BMI 25.7
--- NOTE | 2020-10-15 07:00 | ECG_ITS ---
Measurements Intervals [place] Rate: 75 P: RI: 0 QRS: 22 QRSD: 102 T: 33 QT: 429 QTc: 482 Interpretive Statements ATRIAL FIBRILLATION ABNORMAL ECG Electronically Signed On 10-15-2020 8:10:24 [employer] by Patrick Forde D.O.
[2020-10-15 08:06] VITALS: BP 157/93; PULSE 67; RESP 15; TEMP 36.7; O2SAT 99; BMI 39.5
--- NOTE | 2020-10-15 08:36 | WPDHPUPDATE1 ---
History and Physical Update Update Date/Time: 10/15/20 08:36 History and Physical has been reviewed, including an updated exam of the patient. There are NO changes in the patient's condition. Risks, benefits, and alternatives have been discussed and questions answered. Patient agrees to proceed with procedure.
--- NOTE | 2020-10-15 08:36 | WPDMODSED ---
Moderate Sedation Note-Pt Data Patient Data Diagnosis: Atrial fibrillation Present Complaint: None History and physical update: Patient is a pleasant 60-year-old male with a history of remote DVT status post IVC filter 2005, obesity, diagnosed with atrial fibrillation July 2020 where he presented with generalized weakness, fatigue. It was felt he had a viral illness but was negative for COVID at that time. Patient was rate controlled medications the started on aspirin for CHADS2 Vasc score of 1 for probable hypertension. Echocardiogram revealed EF 60-65%, mild left atrial enlargement no other significant valve problems although moderate right atrial enlargement was identified. Patient was started on Xarelto 1 month ago and has not missed any doses in anticipation for cardioversion to restore sinus rhythm. Patient underwent outpatient ischemic evaluation which was negative for ischemia. Impression/plan: Persistent atrial fibrillation-elective electrical cardioversion this patient has been on uninterrupted anticoagulation for 1 month. Elevated blood pressure probable hypertension Obesity History of remote DVT status post IVC filter Recommendations follow-up post cardioversion. Continue systemic anticoagulation without interruption for at least 30 days post cardioversion. Procedure to be performed/Plan: Elective electrical cardioversion Allergies Allergy/AdvReac Type Severity Reaction Status Date / Time alprazolam Allergy Unknown PSYCHOTIC Verified 07/23/20 19:55 RXN,AMNESIC 2-3DAYS, Home Medications Medication Instructions Recorded Confirmed Type aspirin 325 mg PO DAILY #30 tablet 07/26/20 10/15/20 Rx metoprolol tartrate 25 mg PO Q12HR #60 tablet 07/26/20 10/15/20 Rx rivaroxaban [Xarelto] 20 mg PO DAILY 10/14/20 10/15/20 History Current Medications: Active Medications Sodium Chloride (Normal Saline Iv) 1,000 mls @ 30 mls/hr IV CONT .Q24H CORRY Sedation/Anesthesia: No previous sedation/anesthesia problems (including family history). [facility] Past Medical History Medical History Atrial fibrillation, new onset Presence of IVC filter Surgical History Surgical History S/P IVC filter Family History Family History Mother Breast cancer Social History Social History Smoking status: Former smoker Smoking end date: 09/13/00 Alcohol intake: never Drinks per week: 10 Substance use: never Substance use type: does not use Living arrangements: with family Spiritual care concerns: No Mod Sed Physical Exam Physical Exam Pre Procedural Exam: Normal: Appearance, Eyes, Ears, Nose, Neck (Neck supple, normal range of motion), Throat (Posterior hypopharynx clear, nonerythematous), Airway (No obstruction, normal anatomy), Lungs (Clear to auscultation bilaterally), Heart Size, Heart Rate, Neuro Exam, Liver and Skin and Variation: Heart Rhythm (Irregular irregular rate and rhythm), Abdomen (Obese) and Extremities (1+ Edema) Hours since solid foods: 12 Hours since liquid intake: 12 Internal Medicine - PN: Obj Da Vital Signs Vital Signs: Vital Signs - 24 hr 10/15/20 08:06 Temperature 36.7 C Pulse Rate 67 Respiratory Rate 15 Blood Pressure 157/93 H Pulse Oximetry 99 Meds/Results Medications: Active Medications Generic Name Dose Route Start Last Admin Trade Name Freq PRN Reason Stop Dose Admin Sodium Chloride 1,000 mls @ 30 mls/hr 10/15/20 07:00 Normal Saline Iv IV CONT .Q24H CORRY Labs CBC & Chem 7: 10/15/20 08:02 ASA Classification/Sedation ASA Classification/Sedation ASA Class: III Emergent: No Risks: Risks, benefits and alternatives explained and patient/family accepted plan for sedation. Patient re-evaluated immediately
--- NOTE | 2020-10-15 08:42 | WPDCARDVER ---
Cardioversion Cardioversion Date of procedure: 10/15/20 Procedure: Elective electrical cardioversion Pre-op diagnosis: Atrial fibrillation Post-op diagnosis: same Indications: Atrial fibrillation Description of procedure: Brief history present illness: Patient is a pleasant with a history of referred for elective electrical cardioversion in attempt to restore sinus rhythm. Procedure in detail: After verbal and written informed consent was obtained the patient risks, benefits, and alternatives explained in detail the patient agreed to proceed with the plan of care as outlined above. Patient was evaluated at bedside in the [facility] procedure room. On examination, neck was supple with normal range of motion, no restrictions to opening of the oral cavity, jaw angle and posterior hypopharynx was clear. Lungs were clear to auscultation. Patient was placed in appropriate 30 to 45 degree angle in a supine position. Patient was monitored throughout the study with telemetry, oxygen saturation, end-tidal CO2 monitoring, blood pressure, heart rate, and respirations. Anterior and posterior defibrillator pads placed in the appropriate positions. After confirmation of adequate sedation electrical cardioversion was carried out without complication. Patient tolerated the procedure well without difficulty. Sedation: Moderate Sedation/Anesthesia administration: Patient denied previous intolerance or complications with anesthesia/sedation. Please see sedation note for documentation of the pre-procedure physical examination. As noted above, after adequate local anesthesia of the posterior hypopharynx was achieved, a total of mg intravenous Versed and a total of mcg intravenous Fentanyl in multiple divided doses was utilized for moderate sedation. Sedation start time was and end time was for a total of minutes [id number] intra-procedure time. Sedation was administered by a qualified observer RN under my supervision with intra-procedure [id number] observation and management throughout the entirety of the procedure. There were no other issues or complications and patient tolerated the procedure well and sedation protocol well and I was present for the entirety. Findings: Elective electrical cardioversion: After confirmation of adequate sedation and persistence of atrial fibrillation, 200 joules synched biphasic energy x1 was delivered with immediate denominational of sinus rhythm. Twelve lead EKG was obtained postprocedure confirming sinus rhythm. Complications: None
[2020-10-15 09:20] LABS: Anion Gap 3 mmol/L (8-16); Blood Urea Nitrogen 18 mg/dL (9-20); Calcium 9.3 mg/dL (8.4-10.2); Carbon Dioxide 30 mmol/L (22-30); Chloride 104 mmol/L (98-107); Estimated CRCL calculation 85 ml/min; Estimated Glomerular Filt Rate > 60; Glucose 96 mg/dL (75-110); Potassium 5.8 mmol/L (3.4-5.0); Sodium 137 mmol/L (137-145)
[2020-10-15 10:01] LABS: Potassium 5.5 mmol/L (3.4-5.0)
--- NOTE | 2020-10-15 10:43 | SUR.PREOP ---
Pt. found to have elevated potassium upon presentation for cardioversion. MD Graf made aware and pt. discharge with prescription for Lasix. Cardioversion not completed at this time. Pt. verbalizes understanding of discharge education and Lasix administration. Pt. in no apparent distress upon departure.
--- NOTE | 2020-10-15 14:23 | SUR.PREOP ---
saline lock dc'd and patient allowed to dress. discharged home by Dr Graf for elevated K+. Case cancelled.
== END 2020-10-15 10:45 | disposition home or self-care (01) ==
PROVIDERS: Visit Provider Internal Medicine Cardiovascular Disease
PROC: 5A2204Z Restoration of Cardiac Rhythm, Single (ICD-10-PCS; principal; 2020-10-15 08:30)
DX: I48.19 Other persistent atrial fibrillation (principal); E87.5 Hyperkalemia; Z53.09 Procedure and treatment not carried out because of other contraindication
CPT/HCPCS: 36415; 80048; 83735; 84132; 93005; 99211; C9803; G0463; J2250; J3010; J7030; U0003; U0005

== ENCOUNTER → 2020-11-22 00:31 | Outpatient (CLI) | payer OTHER, SELFPAY ==
[2020-11-22 18:59] LABS: SARS-CoV-2 RNA PCR Negative
== END ==
PROVIDERS: PCP Family Medicine; Visit Provider Internal Medicine Cardiovascular Disease
DX: Z01.812 Encounter for preprocedural laboratory examination (principal); Z20.822 Contact with and (suspected) exposure to COVID-19
CPT/HCPCS: C9803; U0003; U0005

== ENCOUNTER 2020-11-25 01:03 | Day surgery (SDC) | payer OTHER, SELFPAY ==
[2020-11-25] VITALS (10 sets, daily range): BP systolic 149–178; BP diastolic 82–116; PULSE 55–87; RESP 14–21; TEMP 36.6; O2SAT 98–100; BMI 39.0
--- NOTE | 2020-11-25 10:00 | ECG_ITS ---
Measurements Intervals [place] Rate: 66 P: DC: 0 QRS: 24 QRSD: 94 T: 36 QT: 406 QTc: 426 Interpretive Statements ATRIAL FIBRILLATION ABNORMAL ECG Electronically Signed On 11-25-2020 10:49:39 CDT by Patrick Forde D.O.
[2020-11-25 11:00] LABS: Anion Gap 1 mmol/L (8-16); Blood Urea Nitrogen 16 mg/dL (9-20); Calcium 8.7 mg/dL (8.4-10.2); Carbon Dioxide 32 mmol/L (22-30); Chloride 104 mmol/L (98-107); Estimated Glomerular Filt Rate > 60; Glucose 102 mg/dL (75-110); Potassium 4.5 mmol/L (3.4-5.0); Sodium 137 mmol/L (137-145)
[2020-11-25 11:39] LABS: Magnesium 1.9 mg/dL (1.6-2.3)
--- NOTE | 2020-11-25 12:07 | WPDMODSED ---
Moderate Sedation Note-Pt Data Patient Data Diagnosis: Atrial fibrillation Present Complaint: None Procedure to be performed/Plan: Elective electrical cardioversion Allergies Allergy/AdvReac Type Severity Reaction Status Date / Time alprazolam Allergy Unknown PSYCHOTIC Verified 07/23/20 19:55 RXN,AMNESIC 2-3DAYS, Home Medications Medication Instructions Recorded Confirmed Type aspirin 325 mg PO DAILY #30 tablet 07/26/20 10/15/20 Rx metoprolol tartrate 25 mg PO Q12HR #60 tablet 07/26/20 10/15/20 Rx Xarelto 20 mg PO DAILY 10/14/20 10/15/20 History furosemide [Lasix] 20 mg PO DAILY #30 tablet 10/15/20 Rx Current Medications: Active Medications Sodium Chloride (Normal Saline Iv) 1,000 mls @ 30 mls/hr IV CONT .Q24H CORRY Sedation/Anesthesia: No previous sedation/anesthesia problems (including family history). [facility] Past Medical History Medical History Atrial fibrillation, new onset Presence of IVC filter Surgical History Surgical History S/P IVC filter Family History Family History Mother Breast cancer Social History Social History Smoking status: Former smoker Smoking end date: 09/13/00 Alcohol intake: never Drinks per week: 10 Substance use: never Substance use type: does not use Spiritual care concerns: No Mod Sed Physical Exam Physical Exam Pre Procedural Exam: Normal: Appearance, Eyes, Ears, Nose, Neck ( supple, normal range of motion), Throat (Posterior hypopharynx clear, nonerythematous), Airway (Normal anatomy, no obstruction), Lungs (Clear to auscultation bilaterally), Heart Size, Heart Rate, Neuro Exam, Abdomen, Liver and Skin and Variation: Heart Rhythm (Irregular irregular) and Extremities (1 +bilateral lower extremity edema) Hours since solid foods: 12 Hours since liquid intake: 12 Internal Medicine - PN: Obj Da Vital Signs Vital Signs: Vital Signs - 24 hr 11/25/20 10:55 Temperature 36.6 C Pulse Rate 87 Respiratory Rate 14 Blood Pressure 178/116 H Pulse Oximetry 98 Meds/Results Medications: Active Medications Generic Name Dose Route Start Last Admin Trade Name Ziggyq PRN Reason Stop Dose Admin Sodium Chloride 1,000 mls @ 30 mls/hr 11/25/20 10:00 Normal Saline Iv IV CONT .Q24H CORRY Labs CBC & Chem 7: 11/25/20 10:25 Labs: Laboratory Results - last 24 hr 11/25/20 11/25/20 10:25 10:25 Sodium 137 Potassium 4.5 Chloride 104 Carbon Dioxide 32 H Anion Gap 1 L BUN 16 Creatinine 1.20 Estim Creat Clear Calc Not Reportable Estimated GFR > 60 Glucose 102 Calcium 8.7 Magnesium 1.9 ASA Classification/Sedation ASA Classification/Sedation ASA Class: III Emergent: No Risks: Risks, benefits and alternatives explained and patient/family accepted plan for sedation. Patient re-evaluated immediately prior to sedation.
--- NOTE | 2020-11-25 12:07 | WPDHPUPDATE1 ---
History and Physical Update Update Date/Time: 11/25/20 12:07 History and Physical has been reviewed, including an updated exam of the patient. There are NO changes in the patient's condition. Risks, benefits, and alternatives have been discussed and questions answered. Patient agrees to proceed with procedure.
--- NOTE | 2020-11-25 12:49 | ECG_ITS ---
Measurements Intervals [place] Rate: 55 P: 64 VA: 172 QRS: 17 QRSD: 104 T: 15 QT: 448 QTc: 431 Interpretive Statements SINUS BRADYCARDIA ATRIAL PREMATURE COMPLEX BASELINE ARTIFACT- I, II, III, AVR, AVL, AVF BORDERLINE ECG Electronically Signed On 11-25-2020 12:58:45 CDT by Patrick Forde D.O.
--- NOTE | 2020-11-25 14:05 | P.PCNCVR_ITS ---
Cardioversion Cardioversion Date of procedure: 11/25/20 Pre-op diagnosis: Atrial fibrillation Post-op diagnosis: same (Atrial fibrillation) Indications: Atrial fibrillation Description of procedure: Brief history present illness: Patient is a pleasant 60-year-old male with history of atrial fibrillation CHADS2-Vasc score of 1, remote history of DVT, hyperkalemia, chronic lower extremity edema, IVC filter referred for elective electrical cardioversion in attempt to restore sinus rhythm. Previous attempts at cardioversion were deferred secondary to hyperkalemia now resolved. Patient has been continued on systemic anticoagulation without interruption for greater than 4 weeks. Therefore, transesophageal echocardiographic guidance is not advised per guidelines. Procedure in detail: After verbal and written informed consent was obtained the patient risks, benefits, and alternatives explained in detail the patient agreed to proceed with the plan of care as outlined above. Patient was evaluated at bedside in the [facility] procedure room. On examination, neck was supple with normal range of motion, no restrictions to opening of the oral cavity, jaw angle and posterior hypopharynx was clear. Lungs were clear to auscultation. Patient was placed in appropriate 30 to 45 degree angle in a supine position. Patient was monitored throughout the study with telemetry, oxygen saturation, end-tidal CO2 monitoring, blood pressure, heart rate, and respirations. Anterior and posterior defibrillator pads placed in the appropriate positions. After confirmation of adequate sedation electrical cardioversion was carried out without complication. Patient tolerated the procedure well without difficulty. Sedation: Moderate Sedation/Anesthesia administration: Patient denied previous intolerance or complications with anesthesia/sedation. Please see sedation note for documentation of the pre-procedure physical examination. As noted above, after adequate local anesthesia of the posterior hypopharynx was achieved, a total of 6mg intravenous Versed and a total of 125mcg intravenous Fentanyl in multiple divided doses was utilized for moderate sedation. Sedation start time was 1230 and end time was 1248 for a total of 18 minutes [id number] intra-procedure time. Sedation was administered by a qualified observer Viviane Perry RN under my supervision with intra-procedure [id number] observation and management throughout the entirety of the procedure. There were no other issues or complications and patient tolerated the procedure well and sedation protocol well and I was present for the entirety. Findings: Elective electrical cardioversion: After confirmation of adequate sedation and persistence of atrial fibrillation, 200 joules synched biphasic energy x1 was delivered with immediate adventism of sinus rhythm. Twelve lead EKG was obtained postprocedure confirming sinus rhythm. Complications: None Conclusion: Successful adventism of sinus rhythm 200 joules synched biphasic energyx1. Continue systemic anticoagulation without interruption for least 30 days post cardioversion.
== END 2020-11-25 13:00 | disposition home or self-care (01) ==
PROVIDERS: PCP Family Medicine; Visit Provider Internal Medicine Cardiovascular Disease
PROC: 5A2204Z Restoration of Cardiac Rhythm, Single (ICD-10-PCS; principal; 2020-11-25 11:30)
DX: I48.19 Other persistent atrial fibrillation (principal); Z87.891 Personal history of nicotine dependence; Z79.82 Long term (current) use of aspirin; Z86.718 Personal history of other venous thrombosis and embolism; Z79.01 Long term (current) use of anticoagulants
CPT/HCPCS: 36415; 80048; 83735; 92960; 93005; C9803; J2250; J3010; J7040; U0003; U0005

== ENCOUNTER 2020-12-23 16:48 | Outpatient (CLI) | payer OTHER, SELFPAY | END 2020-12-23 16:49 | disposition home or self-care (01) | LOC: ANHCOVIDVC 16:48 | PROVIDERS: PCP Family Medicine | DX: Z23 Encounter for immunization (principal) | CPT/HCPCS: 0001A; 91300 ==

== ENCOUNTER → 2020-12-31 07:14 | Outpatient (CLI) | payer OTHER, SELFPAY ==
--- NOTE | ~2020-12-31 | XR_ITS ---
EXAMINATION: XR lumbar spine 6V w bending DATE: 12/31/2020 08:46 INDICATION: Chronic low back pain. TECHNIQUE: 7 views of lumbar spine including flexion and extension views were obtained. COMPARISON: Lumbar spine MRI 10/28/2006 FINDINGS: There is 14 degrees levoscoliosis of thoracolumbar spine. There is mild chronic anterior we dging of T12 vertebral body. There is mildly decreased disc height from T12-L1 through L3-L4. There a re endplate osteophytes at most levels. The spine is hypomobile with flexion and extension. There is multilevel facet joint osteoarthritis, severe on the left at most levels. There is a filter in the in ferior vena cava. IMPRESSION: 1. Mild lumbar spondylosis. 2. Thoracolumbar levoscoliosis. Reviewed, dictated and finalized at location B.
== END ==
PROVIDERS: PCP Family Medicine; Visit Provider Family Medicine
DX: M47.896 Other spondylosis, lumbar region (principal)
CPT/HCPCS: 72114

== ENCOUNTER 2021-01-13 16:47 | Outpatient (CLI) | payer OTHER, SELFPAY | END 2021-01-13 16:48 | disposition home or self-care (01) | LOC: ANHCOVIDVC 16:47 | PROVIDERS: PCP Family Medicine | DX: Z23 Encounter for immunization (principal) | CPT/HCPCS: 0002A; 91300 ==

== ENCOUNTER 2021-01-20 07:56 | Outpatient (CLI) | payer OTHER, SELFPAY ==
--- NOTE | 2021-01-20 12:46 | WPDPFTINT ---
PFT Procedure Performed PFT Procedure Performed Spirometry with Pre/Post Bronchodilator Plethysmography (Lung Vol) Diffusing Cap (DLCO) Flow Vol Loop PFT Interpretation This is a pulmonary function test with pre and post-bronchodilator spirometry, plethysmography and diffusing capacity. The test was performed and results interpreted in accordance with the 2019 and 2005 ATS/ERS Task Force guidelines respectively using the Global Lung Function Initiative-2012 reference equations. Patient demonstrated good effort and cooperation. Reproducibility criteria were met. The quality of the pre bronchodilator spirometry maneuver was Grade A and post bronchodilator spirometry maneuver was Grade A. Findings: Spirometry: The contour of the inspiratory and expiratory flow tracing are normal. The pre bronchodilator FVC is 4.08 L, 78% predicted. The pre bronchodilator FEV1 is 2.92 L, 74% predicted. The FEV1: FVC ratio 72%. The post bronchodilator FVC is 4.24 for L, representing a 4% increase. The post bronchodilator FEV1 is 3.13 L, representing a 7% increase. Plethysmography: The total lung capacity is 6.22 L, 80% predicted. The functional residual capacity is 2.48 L, 60% predicted. The residual volume is 1.69 L, 67% predicted. Diffusing capacity: The absolute diffusion capacity is 23.3, 79% predicted. The diffusing capacity corrected for alveolar volume is 4.10, 104% predicted. Impression: The spirometry is normal without evidence of an obstructive abnormality. There is no significant improvement after inhaling a single dose of albuterol. The There is a decrease in the functional residual capacity in there are residual volume with a normal total lung capacity. This is an abnormal but nonspecific lung volume pattern. The diffusing capacity is normal. There are no prior studies for comparison
== END 2021-01-20 07:57 | disposition home or self-care (01) ==
PROVIDERS: PCP Family Medicine; Visit Provider Family Medicine
DX: R06.00 Dyspnea, unspecified (principal)
CPT/HCPCS: 94060; 94726; 94729

== ENCOUNTER 2022-07-01 10:26 | Emergency (ER) | payer OTHER, SELFPAY ==
--- NOTE | ~2022-07-01 | XR_ITS ---
EXAMINATION: XR chest 2V DATE: 07/01/2022 14:18 INDICATION: Left-sided pain TECHNIQUE: PA and lateral views of the chest are obtained. COMPARISON: 07/25/2020 FINDINGS: The lungs are free of acute opacities. No pleural effusion or pneumothorax. The cardiomedia stinal silhouette is normal. There are bridging osteophytes at multiple levels in the spine, consiste nt with diffuse idiopathic skeletal hyperostosis (DISH). IMPRESSION: 1. No acute cardiopulmonary abnormality. Reviewed, dictated and finalized at location A.
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
--- NOTE | ~2022-07-01 | XR_ITS ---
EXAMINATION: XR shoulder LT min 2V DATE: 07/01/2022 14:18 INDICATION: Left shoulder pain. TECHNIQUE: 4 views of left shoulder were obtained. COMPARISON: None. FINDINGS: Bone alignment is normal. No fracture. There is mild osteoarthritis of glenohumeral joint a nd acromioclavicular joint. IMPRESSION: 1. Mild polyarticular osteoarthritis. Reviewed, dictated and finalized at location B.
[2022-07-01 10:38] VITALS: BP 177/95; PULSE 93; RESP 20; TEMP 36.8; O2SAT 98
--- NOTE | 2022-07-01 10:44 | ECG_ITS ---
Measurements Intervals [place] Rate: 95 P: HI: 0 QRS: 11 QRSD: 90 T: 40 QT: 359 QTc: 451 Interpretive Statements ATRIAL FIBRILLATION ABNORMAL RHYTHM ECG COMPARED TO ECG 11/25/2020 12:52:05 ATRIAL FIBRILLATION NOW PRESENT Electronically Signed On 07-01-2022 13:56:00 CDT by Ammon Graham M.D.
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
[2022-07-01 13:54] VITALS: BP 152/95; PULSE 76; RESP 18; O2SAT 100
== END 2022-07-01 15:44 | disposition home or self-care (01) ==
PROVIDERS: Emergency Provider Emergency Medicine; PCP Family Medicine
DX: S13.4XXA Sprain of ligaments of cervical spine, initial encounter (principal); S46.912A Strain of unspecified muscle, fascia and tendon at shoulder and upper arm level, left arm, initial encounter; I48.91 Unspecified atrial fibrillation; M47.812 Spondylosis without myelopathy or radiculopathy, cervical region; M19.012 Primary osteoarthritis, left shoulder; Z87.891 Personal history of nicotine dependence; Z79.82 Long term (current) use of aspirin; Z98.1 Arthrodesis status; V49.40XA Driver injured in collision with unspecified motor vehicles in traffic accident, initial encounter
CPT/HCPCS: 71046; 72125; 73030; 93005; 99284

== ENCOUNTER 2023-12-09 11:07 | Outpatient (CLI) | payer OTHER, SELFPAY ==
[2023-12-09 11:31] LABS: Basophils Percent Auto 0.4 % (0.2-1.2); Eosinophils Absolute Auto 0.1 K/mm3 (0-0.3); Eosinophils Percent Auto 0.7 % (0-4.4); Hematocrit 48.7 % (42.0-52.0); Hemoglobin 16.9 g/dL (14.0-18.0); Immature Granulocyte Absolute 0.03 K/mm3 (0.00-0.031); Immature Granulocyte Percent A 0.4 % (0-0.5); Lymphocytes Absolute Auto 1.59 K/mm3 (0.9-3.2); Lymphocytes Percent Auto 19.8 % (18.3-44.2); Mean Corpuscular HGB Conc 34.7 g/dl (32-36); Mean Corpuscular Hemoglobin 35.8 pg (26-34); Mean Corpuscular Volume 103.2 fl (80-100); Mean Platelet Volume 8.5 fl (7.4-10.4); Monocytes Absolute Auto 0.8 K/mm3 (0.1-0.6); Monocytes Percent Auto 9.8 % (2.6-8.5); Neutrophils Absolute Auto 5.5 K/mm3 (1.3-6.7); Neutrophils Percent Auto 68.9 % (45.5-73.1); Platelet Count Result 198 k/mm3 (150-375); Red Blood Count 4.72 M/mm3 (4.6-6.20); Red Cell Distribution Width 13.8 % (11.5-14.5)
[2023-12-09 13:51] LABS: Alanine Aminotransferase 30 U/L (6-50); Albumin Level 4.4 g/dL (3.5-5.1); Alkaline Phosphatase 109 U/L (38-126); Anion Gap 9 mmol/L (4-12); Aspartate Amino Transferase 30 U/L (17-59); Bilirubin,Total 1.3 mg/dL (0.2-1.3); Blood Urea Nitrogen 13 mg/dL (9-20); Calcium 9.4 mg/dL (8.4-10.2); Carbon Dioxide 22 mmol/L (22-30); Chloride 103 mmol/L (98-107); Estimated Glomerular Filt Rate > 60; Glucose 96 mg/dL (65-110); Potassium 4.4 mmol/L (3.4-5.0); Sodium 134 mmol/L (137-145)
[2023-12-09 13:55] LABS: Immunoglobulin A 485 mg/dL (70-400); Immunoglobulin G 1828 mg/dL (700-1600); Immunoglobulin M 65 mg/dL (40-230)
[2023-12-11 20:42] LABS: Kappa\\Lambda Light Chains 1.79 (0.26-1.65)
[2023-12-13 10:37] LABS: Albumin 4.1 g/dL (3.8-4.8); Alpha 1 Globulin 0.3 g/dL (0.2-0.3); Alpha 2 Globulin 0.7 g/dL (0.5-0.9); Beta 1 Globulin 0.5 g/dL (0.4-0.6); Gamma Globulin 1.6 g/dL (0.8-1.7); Protein, Total 7.7 g/dL (6.1-8.1)
== END 2023-12-09 11:08 | disposition home or self-care (01) ==
LOC: ANHLAB 11:09
PROVIDERS: PCP Family Medicine; Visit Provider Internal Medicine Hematology & Oncology
DX: D72.9 Disorder of white blood cells, unspecified (principal)
CPT/HCPCS: 36415; 80053; 82784; 83883; 84155; 84165; 85025

== ENCOUNTER 2023-12-10 09:22 | Outpatient (CLI) | payer OTHER, SELFPAY ==
--- NOTE | ~2023-12-10 | XR_ITS ---
EXAMINATION: XR bone survey comp/metastic DATE: 12/10/2023 10:04 INDICATION: Plasma cell disorder. TECHNIQUE: 3 views of a skeletal survey were obtained. COMPARISON: None. FINDINGS: There is no pneumonia, pleural effusion, or pneumothorax. The heart size is normal. There i s severe cervical spondylosis. There are bridging endplate osteophytes at multiple levels in the thor acic spine, consistent with diffuse idiopathic skeletal hyperostosis (DISH). There is moderate lumbar spondylosis. Polyarticular osteoarthritis is noted. There is a filter in the inferior vena cava. IMPRESSION: 1. No evidence of multiple myeloma. Reviewed, dictated and finalized at location E.
== END 2023-12-10 09:23 | disposition home or self-care (01) ==
PROVIDERS: PCP Family Medicine; Visit Provider Internal Medicine Hematology & Oncology
DX: D72.9 Disorder of white blood cells, unspecified (principal)
CPT/HCPCS: 77075

== ENCOUNTER 2024-06-30 10:21 | Outpatient (CLI) | payer OTHER, SELFPAY ==
[2024-06-30 10:46] LABS: Basophils Absolute Auto 0.1 K/mm3 (0.0-0.1); Basophils Percent Auto 0.7 % (0.2-1.2); Eosinophils Absolute Auto 0.1 K/mm3 (0-0.3); Eosinophils Percent Auto 0.8 % (0-4.4); Hematocrit 45.9 % (42.0-52.0); Hemoglobin 15.7 g/dL (14.0-18.0); Immature Granulocyte Absolute 0.03 K/mm3 (0.00-0.031); Immature Granulocyte Percent A 0.4 % (0-0.5); Lymphocytes Absolute Auto 1.78 K/mm3 (0.9-3.2); Lymphocytes Percent Auto 23.5 % (18.3-44.2); Mean Corpuscular HGB Conc 34.2 g/dl (32-36); Mean Corpuscular Hemoglobin 35.2 pg (26-34); Mean Corpuscular Volume 102.9 fl (80-100); Monocytes Absolute Auto 0.8 K/mm3 (0.1-0.6); Monocytes Percent Auto 10.4 % (2.6-8.5); Neutrophils Absolute Auto 4.9 K/mm3 (1.3-6.7); Neutrophils Percent Auto 64.2 % (45.5-73.1); Platelet Count Result 176 k/mm3 (150-375); Red Blood Count 4.46 M/mm3 (4.6-6.20); Red Cell Distribution Width 13.5 % (11.5-14.5); White Blood Count 7.6 K/mm3 (4.5-10.0)
[2024-06-30 13:31] LABS: Alanine Aminotransferase 24 U/L (6-50); Albumin Level 4.1 g/dL (3.5-5.1); Alkaline Phosphatase 99 U/L (38-126); Anion Gap 6 mmol/L (4-12); Aspartate Amino Transferase 33 U/L (17-59); Bilirubin,Total 1.3 mg/dL (0.2-1.3); Blood Urea Nitrogen 8 mg/dL (9-20); Calcium 9.1 mg/dL (8.4-10.2); Carbon Dioxide 27 mmol/L (22-30); Chloride 102 mmol/L (98-107); Estimated Glomerular Filt Rate > 60; Glucose 108 mg/dL (65-110); Potassium 4.4 mmol/L (3.4-5.0); Sodium 135 mmol/L (137-145)
[2024-06-30 13:39] LABS: Immunoglobulin A 407 mg/dL (70-400); Immunoglobulin G 1623 mg/dL (700-1600); Immunoglobulin M 64 mg/dL (40-230)
[2024-07-01 09:04] LABS: Protein, Total 7.1 g/dL (6.1-8.1)
[2024-07-03 16:33] LABS: Lambda Light Chain 20.3 mg/L (5.7-26.3)
== END 2024-06-30 10:22 | disposition home or self-care (01) ==
LOC: ANHLAB 10:22
PROVIDERS: PCP Family Medicine; Visit Provider Internal Medicine Hematology & Oncology
DX: D72.9 Disorder of white blood cells, unspecified (principal)
CPT/HCPCS: 36415; 80053; 82784; 83883; 84155; 84165; 85025